=== PATIENT | male | born 1940 | race Caucasian/White ===

== ENCOUNTER → 2017-11-18 | Outpatient (CLI) | payer MEDICARE, OTHER ==
[~2017-11-18] MED LIST: ASPI1TAB7 PO; ATEN-100 PO; CALC600T12 PO; COZA100T PO; HYDR-2768 PO; NORV5TAB PO; PRAV40TA2 PO; VITA400T2 PO
== END ==
LOC: ELAB 09:29
PROVIDERS: ATTEND Urology
DX: R97.20 Elevated prostate specific antigen [PSA] (principal)
CPT/HCPCS: 36415; 84153